=== PATIENT | male | born 1970 | race Caucasian/White ===

== ENCOUNTER 2017-06-05 17:00 | Emergency (ER) | payer MEDICAID ==
[2017-06-05 18:07] LABS: BASOPHILS 0.3 % (0-2); EOSINOPHILS 1.5 % (0-7); HEMATOCRIT 45.5 % (42.0-54.0); IMMATURE GRANULOCYTES 0.2 % (0-5); LYMPHOCYTES 32.9 % (15-50); MCH 30.8 pg (26.0-34.0); MCHC 35.2 g/dL (31.0-37.0); MCV 87.5 fL (80.0-100.0); MEAN PLATELET VOLUME 10.6 fL (7.4-10.4); MONOCYTES 7.7 % (2-11); NEUTROPHILS 57.4 % (40-80); PLATELET COUNT 192 10x3/uL (130-400); RDW 13.2 % (11.5-14.5); WBC 6.1 10x3/uL (4.8-10.8)
[2017-06-05 18:20] LABS: ALBUMIN 3.7 g/dL (3.4-5.0); ALKALINE PHOSPHATASE 49 U/L (46-116); ALT (SGPT) 22 U/L (10-68); BILIRUBIN - TOTAL 0.92 mg/dL (0.2-1.3); CALC OSMOLALITY 279 mosm/kg (275-300); CALCIUM 8.5 mg/dL (8.5-10.1); CARBON DIOXIDE 28.1 mmol/L (21.0-32.0); CHLORIDE - SERUM 104 mmol/L (98-107); CREATININE - SERUM 1.1 mg/dL (0.6-1.3); GLUCOSE 104 mg/dL (74-106); POTASSIUM - SERUM 3.6 mmol/L (3.5-5.1); SODIUM 141 mmol/L (136-145); UREA NITROGEN 10 mg/dL (7-18); eGFR NON AFRICAN AMERICAN 77 mL/min (90-120)
[2017-06-05 18:27] LABS: APPEARANCE CLEAR (CLEAR); BILIRUBIN NEGATIVE (NEGATIVE); COLOR YELLOW (YELLOW); GLUCOSE NEGATIVE (NEGATIVE); KETONE NEGATIVE (NEGATIVE); LEUKOCYTE ESTERASE NEGATIVE (NEGATIVE); NITRITE NEGATIVE (NEGATIVE); PROTEIN NEGATIVE (NEGATIVE); SPECIFIC GRAVITY 1.025 (1.005-1.020); UROBILINOGEN NORMAL (NORMAL)
== END 2017-06-05 19:55 | disposition home or self-care (01) ==
LOC: D.ER 17:00
PROVIDERS: Emergency Medicine
DX: K46.9 Unspecified abdominal hernia without obstruction or gangrene (principal); F17.200 Nicotine dependence, unspecified, uncomplicated; R10.9 Unspecified abdominal pain

== ENCOUNTER → 2017-07-03 13:04 | Outpatient (CLI) | payer MEDICAID ==
[2017-07-03 13:43] LABS: BASOPHILS 0.5 % (0-2); HEMATOCRIT 48.7 % (42.0-54.0); HEMOGLOBIN 17.1 g/dL (13.5-17.5); IMMATURE GRANULOCYTES 0.2 % (0-5); LYMPHOCYTES 25.2 % (15-50); MCH 31.2 pg (26.0-34.0); MCHC 35.1 g/dL (31.0-37.0); MCV 88.9 fL (80.0-100.0); MEAN PLATELET VOLUME 10.5 fL (7.4-10.4); NEUTROPHILS 66.1 % (40-80); PLATELET COUNT 230 10x3/uL (130-400); RBC 5.48 10x6/uL (4.20-6.10); RDW 13.2 % (11.5-14.5); WBC 8.3 10x3/uL (4.8-10.8)
[2017-07-03 14:06] LABS: ALBUMIN 3.9 g/dL (3.4-5.0); ALKALINE PHOSPHATASE 49 U/L (46-116); ALT (SGPT) 22 U/L (10-68); CALC OSMOLALITY 283 mosm/kg (275-300); CARBON DIOXIDE 25.7 mmol/L (21.0-32.0); CHLORIDE - SERUM 106 mmol/L (98-107); GLUCOSE 95 mg/dL (74-106); PROTEIN - SERUM 7.2 g/dL (6.4-8.2); SODIUM 143 mmol/L (136-145); UREA NITROGEN 9 mg/dL (7-18); eGFR NON AFRICAN AMERICAN 86 mL/min (90-120)
== END | disposition home or self-care (01) ==
LOC: D.CT 13:00
PROVIDERS: Surgery
DX: K57.92 Diverticulitis of intestine, part unspecified, without perforation or abscess without bleeding (principal)

== ENCOUNTER 2017-09-01 11:20 | Emergency (ER) | payer MEDICAID ==
[2017-09-01 12:37] LABS: APPEARANCE CLEAR (CLEAR); BILIRUBIN NEGATIVE (NEGATIVE); COLOR STRAW (YELLOW); GLUCOSE NEGATIVE (NEGATIVE); KETONE NEGATIVE (NEGATIVE); NITRITE NEGATIVE (NEGATIVE); PH 5.5 (5.0-6.0); PROTEIN NEGATIVE (NEGATIVE); SPECIFIC GRAVITY 1.005 (1.005-1.020); UROBILINOGEN NORMAL (NORMAL)
[2017-09-01 12:38] LABS: BASOPHILS 0.7 % (0-2); EOSINOPHILS 0.5 % (0-7); HEMATOCRIT 57.4 % (42.0-54.0); HEMOGLOBIN 19.7 g/dL (13.5-17.5); IMMATURE GRANULOCYTES 0.5 % (0-5); MCH 31.3 pg (26.0-34.0); MCHC 34.3 g/dL (31.0-37.0); MCV 91.3 fL (80.0-100.0); MONOCYTES 7.1 % (2-11); NEUTROPHILS 67.2 % (40-80); PLATELET COUNT 251 10x3/uL (130-400); RBC 6.29 10x6/uL (4.20-6.10); RDW 13.7 % (11.5-14.5); WBC 8.4 10x3/uL (4.8-10.8)
[2017-09-01 12:45] LABS: UDS - AMPHET NEGATIVE QUAL (NEGATIVE); UDS - BARB NEGATIVE QUAL (NEGATIVE); UDS - BENZO NEGATIVE QUAL (NEGATIVE); UDS - COCAINE NEGATIVE QUAL (NEGATIVE); UDS - OPIATE NEGATIVE QUAL (NEGATIVE); UDS - PCP NEGATIVE QUAL (NEGATIVE); UDS - THC NEGATIVE QUAL (NEGATIVE)
[2017-09-01 12:54] LABS: ALBUMIN 4.2 g/dL (3.4-5.0); ALKALINE PHOSPHATASE 58 U/L (46-116); ALT (SGPT) 22 U/L (10-68); CALC OSMOLALITY 282 mosm/kg (275-300); CARBON DIOXIDE 22.8 mmol/L (21.0-32.0); CHLORIDE - SERUM 105 mmol/L (98-107); GLUCOSE 88 mg/dL (74-106); PROTEIN - SERUM 7.9 g/dL (6.4-8.2); SODIUM 143 mmol/L (136-145); UREA NITROGEN 11 mg/dL (7-18); eGFR NON AFRICAN AMERICAN 86 mL/min (90-120)
[2017-09-01 12:56] LABS: PHENYTOIN (DILANTIN) < 0.5 ug/mL (10.0-20.0)
== END 2017-09-01 18:29 | disposition home or self-care (01) ==
LOC: D.ER 11:20
PROVIDERS: Nurse Practitioner Family
DX: F10.10 Alcohol abuse, uncomplicated (principal); F31.89 Other bipolar disorder; F10.129 Alcohol abuse with intoxication, unspecified

== ENCOUNTER 2019-02-26 14:20 | Emergency (ER) | payer MEDICAID ==
[~2019-02-26] VITALS: Ht 175.3 cm; Wt 97.7 kg
[2019-02-26 14:24] VITALS: Ht 175.3 cm; Wt 97.7 kg
[2019-02-26] MEDS ORDERED: ROBAXIN500 MG PO (16:46)
[2019-02-26 17:43] VITALS: BP 118/63
== END 2019-02-26 17:44 | disposition home or self-care (01) ==
LOC: D.ER 14:20
DX: S00.83XA Contusion of other part of head, initial encounter (principal); V86.59XA Driver of other special all-terrain or other off-road motor vehicle injured in nontraffic accident, initial encounter; S20.219A Contusion of unspecified front wall of thorax, initial encounter

== ENCOUNTER 2019-02-28 15:02 | Inpatient (IN) | payer MEDICAID ==
[~2019-02-28] VITALS: Ht 175.3 cm; Wt 83.6 kg
[~2019-02-28 15:02] MED LIST: ROBAXIN500 MG PO
[2019-02-28] MEDS ORDERED: CELEXA40 MG PO (15:09)
[2019-02-28] MEDS ORDERED: DILANTIN100 MG PO (15:09)
[2019-02-28] MEDS ORDERED: SEROQUEL300 MG PO (15:09)
[2019-02-28] MEDS ORDERED: KLONOPIN1 MG PO (15:10)
--- NOTE | 2019-02-28 15:40 | NUR ---
TO CT VIA STRETCHER WITH HUMAN RESOURCES TRAINEE
[2019-02-28 15:48] LABS: BASOPHILS 0.6 % (0-2); EOSINOPHILS 0.1 % (0-7); HEMATOCRIT 47.8 % (42.0-54.0); HEMOGLOBIN 17.1 g/dL (13.5-17.5); IMMATURE GRANULOCYTES 0.6 % (0-5); LYMPHOCYTES 22.6 % (15-50); MCH 32.1 pg (26.0-34.0); MCHC 35.8 g/dL (31.0-37.0); MCV 89.7 fL (80.0-100.0); MEAN PLATELET VOLUME 9.6 fL (7.4-10.4); MONOCYTES 7.2 % (2-11); NEUTROPHILS 68.9 % (40-80); PLATELET COUNT 265 10x3/uL (130-400); RBC 5.33 10x6/uL (4.20-6.10); RDW 13.4 % (11.5-14.5); WBC 7.8 10x3/uL (4.8-10.8)
[2019-02-28 15:56] LABS: APTT 27.3 SECONDS (22.8-39.4); INR 1.08 (0.85-1.17); PROTIME 13.5 SECONDS (11.6-15.0)
[2019-02-28 16:00] LABS: ALBUMIN 3.8 g/dL (3.4-5.0); ALKALINE PHOSPHATASE 54 U/L (46-116); ALT (SGPT) 33 U/L (10-68); BILIRUBIN - TOTAL 0.69 mg/dL (0.2-1.3); CALC OSMOLALITY 289 mosm/kg (275-300); CALCIUM 8.8 mg/dL (8.5-10.1); CHLORIDE - SERUM 105 mmol/L (98-107); CREATININE - SERUM 0.9 mg/dL (0.6-1.3); POTASSIUM - SERUM 3.3 mmol/L (3.5-5.1); PROTEIN - SERUM 7.8 g/dL (6.4-8.2); SODIUM 144 mmol/L (136-145); UREA NITROGEN 13 mg/dL (7-18); eGFR NON AFRICAN AMERICAN > 90 mL/min (90-120)
[2019-02-28 16:02] LABS: GLUCOSE 159 mg/dL (74-106)
--- NOTE | 2019-02-28 16:02 | NUR ---
FSBS= 171M/DL
[2019-02-28 16:03] VITALS: BP 140/92
--- NOTE | 2019-02-28 16:05 | NUR ---
CRITICAL LAB RCVD: JAIME ZARATE PA NOTIFIED
[2019-02-28 16:25] LABS: CKMB 1.1 U/L (0.0-3.6); CREATINE KINASE 119 UL (21-232); MAGNESIUM - SERUM 1.9 mg/dL (1.8-2.4); THYROID STIMULATING HORMONE 0.61 uIU/mL (0.36-3.74)
[2019-02-28 16:26] LABS: TROPONIN-I < 0.017 ng/mL (0.000-0.060)
[2019-02-28 17:31] VITALS: BP 128/81
[2019-02-28 18:14] VITALS: BP 125/71
[2019-02-28 19:06] VITALS: BP 133/83
--- NOTE | 2019-02-28 19:06 | NUR ---
REPORT TO NICA LITTLEJOHN
[2019-02-28 20:00] VITALS: BP 121/68; BP 129/78
--- NOTE | 2019-02-28 20:14 | NUR ---
REPORT CALLED TO FLOOR, ROOM DIRTY AT THIS TIME.
--- NOTE | 2019-02-28 20:37 | NUR ---
PT PULLED OUT IV, RESITED IN RIGHT HAND 20 GAUGE X 1 ATTEMPT.
--- NOTE | 2019-02-28 21:02 | NUR ---
CALLED FLOOR, ROOM STILL DIRTY, STATES THEY ARE CLEANING IT NOW WILL CALL BACK WHEN IT IS DONE.
[2019-02-28 23:11] VITALS: BP 121/68; BMI 27.2
--- NOTE | 2019-02-28 23:17 | NUR ---
ADMIT ASSESSMENT COMPLETE. PT IS AAO X3 HAS SOME MILD CONFUSION. STATES NAME AND , PLACE CORRECT HOSPITAL WHEN ASKED WHAT YEAR IT IS PT TOOK A WHILE TO RESPOND THAN STATED 2001, CORRECTED PT AND ASKED WHO THE PRESIDENT IS. PT STATED CORRECT JOSE BLEDSOE. PT STATES HERE SITUATION FOR DRINKING ETOH, THAN SAID SOMETHING ABOUT A FOUR ALMONTE ROLL OVER IS WHY JUST LIKE LAST TIME AND STARTED TALKING ABOUT HIS ID BRACLET. PT S1S2 RRR, LUNGS CLEAR. BOWEL SOUNDS ACTIVE. ABDOMENT ROUNDED, SOFT. PT VERBALIZED UNDERSTANDING ABOUT NOT GETTING UP WITHOUT ASSIST DUE TO CONFUSION, ALARM ON AND ACTIVE. PT HAS A RIGHT HAND 20G WITH 20MEQ KCL, AND MVI BAG INFUSING ORDERED. PT WILL CALL FOR ASSIST WHEN NEEDED. WILL CPOC
--- NOTE | 2019-02-28 23:46 | NUR ---
STAND BY ASSISTED PT TO BATHEROOM. PT ALERT AND ORIENTED. BED ALARM IN PLACE. PT URINATED 200ML. BED LOW CALL LIGHT WITHIN REACH. WILL CONTINUE TO MONITOR.
[2019-03-01] VITALS: BP 90/44
[2019-03-01 05:35] LABS: BASOPHILS 0.5 % (0-2); EOSINOPHILS 0.2 % (0-7); HEMATOCRIT 41.4 % (42.0-54.0); HEMOGLOBIN 14.4 g/dL (13.5-17.5); IMMATURE GRANULOCYTES 0.3 % (0-5); LYMPHOCYTES 33.5 % (15-50); MCH 31.4 pg (26.0-34.0); MCHC 34.8 g/dL (31.0-37.0); MCV 90.2 fL (80.0-100.0); MEAN PLATELET VOLUME 9.3 fL (7.4-10.4); MONOCYTES 8.3 % (2-11); NEUTROPHILS 57.2 % (40-80); RBC 4.59 10x6/uL (4.20-6.10); RDW 13.4 % (11.5-14.5); WBC 8.8 10x3/uL (4.8-10.8)
[2019-03-01 05:39] LABS: PLATELET COUNT 209 10x3/uL (130-400)
[2019-03-01 06:03] LABS: CALC OSMOLALITY 279 mosm/kg (275-300); CALCIUM 7.5 mg/dL (8.5-10.1); CARBON DIOXIDE 23.5 mmol/L (21.0-32.0); CHLORIDE - SERUM 107 mmol/L (98-107); CREATININE - SERUM 0.9 mg/dL (0.6-1.3); POTASSIUM - SERUM 3.7 mmol/L (3.5-5.1); SODIUM 141 mmol/L (136-145); UREA NITROGEN 11 mg/dL (7-18); eGFR NON AFRICAN AMERICAN > 90 mL/min (90-120)
[2019-03-01 06:21] LABS: GLUCOSE 104 mg/dL (74-106)
[2019-03-01 08:14] LABS: APPEARANCE CLEAR (CLEAR); COLOR YELLOW (YELLOW)
[2019-03-01 08:15] LABS: BILIRUBIN NEGATIVE (NEGATIVE); GLUCOSE NEGATIVE (NEGATIVE); KETONE NEGATIVE (NEGATIVE); NITRITE NEGATIVE (NEGATIVE); PROTEIN TRACE mg/dL (NEGATIVE); UROBILINOGEN NORMAL (NORMAL); WHITE CELLS - URINE 0-5 /hpf (0-5)
[2019-03-01 08:16] LABS: BACTERIA FEW /hpf (NONE SEEN); EPITHELIAL CELLS 0-5 /hpf (0-5)
[2019-03-01 08:29] LABS: UDS - AMPHET NEGATIVE QUAL (NEGATIVE); UDS - BARB NEGATIVE QUAL (NEGATIVE); UDS - BENZO NEGATIVE QUAL (NEGATIVE); UDS - COCAINE NEGATIVE QUAL (NEGATIVE); UDS - OPIATE NEGATIVE QUAL (NEGATIVE); UDS - PCP NEGATIVE QUAL (NEGATIVE); UDS - THC NEGATIVE QUAL (NEGATIVE)
[2019-03-01 09:08] VITALS: BP 115/77
--- NOTE | 2019-03-01 09:40 | NUR ---
PT URINATED IN BED. PT WANTING TO SHOWER. SL RHGT FA IV AND COVERED. PT GIVEN SHOWER STUFF. PT IN SHOWER. COMPLETE BED CHANGE DONE.
[2019-03-01 11:31] VITALS: BP 121/69
[2019-03-01 12:42] VITALS: Ht 175.3 cm; Wt 83.6 kg
--- NOTE | 2019-03-01 14:21 | NUR ---
I have reviewed this patient and I concur with the Shift Assessment completed by the Licensed Practical Nurse today this shift.
--- NOTE | 2019-03-01 15:29 | NUR ---
PT LYING IN BED. WATCHING TV. PT HAS NO FURTHER NEEDS AT THIS TIME. BED LOW. CL IN REACH.
[2019-03-01 15:30] VITALS: BP 121/79
--- NOTE | 2019-03-01 19:22 | NUR ---
PT IN BED. DENIES NEEDS AT THIS TIME.
[2019-03-01 20:00] VITALS: BP 133/75
[2019-03-02] VITALS: BP 129/61
[2019-03-02 03:00] VITALS: BP 100/62
--- NOTE | 2019-03-02 03:02 | NUR ---
I have reviewed this patient and I concur with the Shift Assessment completed by the Licensed Practical Nurse today this shift.
[2019-03-02 05:36] LABS: BASOPHILS 0.5 % (0-2); EOSINOPHILS 0.3 % (0-7); HEMATOCRIT 40.5 % (42.0-54.0); HEMOGLOBIN 14.3 g/dL (13.5-17.5); IMMATURE GRANULOCYTES 0.3 % (0-5); LYMPHOCYTES 36.6 % (15-50); MCH 31.3 pg (26.0-34.0); MCHC 35.3 g/dL (31.0-37.0); MCV 88.6 fL (80.0-100.0); MEAN PLATELET VOLUME 9.5 fL (7.4-10.4); MONOCYTES 3.8 % (2-11); NEUTROPHILS 58.5 % (40-80); RBC 4.57 10x6/uL (4.20-6.10)
[2019-03-02 05:46] LABS: PLATELET COUNT 163 10x3/uL (130-400); WBC 6.3 10x3/uL (4.8-10.8)
[2019-03-02 05:55] LABS: ALBUMIN 2.9 g/dL (3.4-5.0); ALKALINE PHOSPHATASE 60 U/L (46-116); ALT (SGPT) 27 U/L (10-68); CALC OSMOLALITY 279 mosm/kg (275-300); CALCIUM 8.1 mg/dL (8.5-10.1); CARBON DIOXIDE 23.2 mmol/L (21.0-32.0); CHLORIDE - SERUM 107 mmol/L (98-107); CREATININE - SERUM 0.9 mg/dL (0.6-1.3); GLUCOSE 104 mg/dL (74-106); POTASSIUM - SERUM 3.5 mmol/L (3.5-5.1); PROTEIN - SERUM 6.1 g/dL (6.4-8.2); SODIUM 141 mmol/L (136-145); UREA NITROGEN 11 mg/dL (7-18); eGFR NON AFRICAN AMERICAN > 90 mL/min (90-120)
--- NOTE | 2019-03-02 07:30 | NUR ---
EYES CLOSED, EVEN UNLABORED BREATHING, EASILY AROUSED BY VOICE, AAOX4 RIGHT FOREARM PATENT, SALINE LOCKED, ON ROOM AIR, DENIES ANY CURRENT NEEDS OR DISOMFORT, BED LOWERED AND LOCKED, CALL LIGHT WITHIN REACH. CPOC
[2019-03-02 08:32] VITALS: BP 122/79
[2019-03-02 12:27] VITALS: BP 115/70
--- NOTE | 2019-03-02 13:00 | NUR ---
I have reviewed this patient and I concur with the Shift Assessment completed by the Licensed Practical Nurse today this shift.
--- NOTE | 2019-03-02 18:45 | NUR ---
IV TO RIGHT HAND DISCONTINUED. IV CATHETER TIP INTACT, NO DISCOMFORT. SITE COVERED WITH GAUZE AND TAPE.
--- NOTE | 2019-03-02 19:17 | NUR ---
DISCHARGE INSTRUCTIONS GIVEN. VERBALIZES UNDERSTANDING. CONCERN ABOUT SOME [facility] THAT HE HAD UPON ADMISSION AND THAT ARE NOW MISSING. LEADER ASSEMBLER CALLED ER AND ADMISSIONS AND THERE WAS NO RECORD OF HIM HAVING THEM. I INSTRUCTED HIM TO GO HOME AND MAKE SURE THAT THEY WERE NOT SOMEWHERE AT HOME AND IF HE WAS STILL UNABLE TO LOCATE THEM AND IS SURE HE HAD THEM UPON ADMISSION TO CALL THE HOPSITAL IN THE MORNING.
--- NOTE | 2019-03-03 09:33 | MORECARE ---
CASE MANAGEMENT DISCHARGE SUMMARY PATIENT: REMINGTON SOSA UNIT: [id number] ADM DATE: 02/28/19 AGE: 48 : 74 SEX: M ROOM/BED: D.2139 AUTHOR: MANISHA MENENDEZ PHYSICIAN: REFERRING PHYSICIAN: INDIA ALVES MD DATE OF SERVICE: 03/03/19 Discharge Plan Patient Name: REMINGTON SOSA Facility: [facility]:[place] : 1970 Planned Disposition: Home Anticipated Discharge Date: 03/02/19 Discharge Date: 03/02/2019 Expected LOS: 2 Initial Reviewer: [email or web address] Initial Review Date: 03/03/2019 Generated: 03/03/19 10:32 am Patient Name: REMINGTON SOSA Page [id number] at 0933 All edits/amendments must be made on the electronic document DICTATION DATE: 03/03/19931 JOURNEYMAN MOLDER: ANDREW 03/03/19931 RPT#: [id number] DC DATE:03/02/19 STATUS: DIS IN [facility] [address] [place] [address] END OF REPORT
== END 2019-03-02 19:20 | disposition home or self-care (01) | DRG 896 ==
LOC: D.ER 15:02 → D.EDHOLD 20:04 → D.M2 20:06
PROVIDERS: Emergency Medicine; ADMIT Internal Medicine Nephrology; ATTEND Internal Medicine Nephrology
DX: F10.129 Alcohol abuse with intoxication, unspecified (principal); G93.41 Metabolic encephalopathy; R17 Unspecified jaundice; Y90.6 Blood alcohol level of 120-199 mg/100 ml; E78.5 Hyperlipidemia, unspecified; G40.909 Epilepsy, unspecified, not intractable, without status epilepticus; F31.9 Bipolar disorder, unspecified